=== PATIENT | female | born 1985 | race Caucasian/White ===

== ENCOUNTER 2016-09-08 13:55 | Emergency (ER) | payer OTHER ==
[2016-09-08] MEDS ORDERED: Ketorolac INJ* 60 MG/2 ML VIAL IM ONE (15:28)
[2016-09-08] MEDS ORDERED: Lidocaine 2% VISCOUS* 15 ML UDC PO ONE (15:29)
[2016-09-08] MEDS ORDERED: Lidocaine 2% VISCOUS* 15 ML UDC ONE (15:30)
[2016-09-08 15:32] VITALS: BP 124/66
--- NOTE | 2016-09-08 17:09 | UC ---
Dental HPI - HPI Summary HPI Summary: pt reports have top 4 front teeth extracted yesterday. c/o pain tenderness at extraction site. - History of Current Complaint Chief Complaint: UCDentalProblem Stated Complaint: DENTAL PAIN- FULL TOP EXTRAC 2/3 Time Seen by Provider: 09/08/16 16:37 Hx Obtained From: Patient Hx Last Menstrual Period: 09/04/16 ?: No Onset/Duration: Sudden Onset, Lasting Hours Severity: Moderate Related History: Previous Dental Care on Same Tooth - Allergies/Home Medications Allergies/Adverse Reactions: Allergies Allergy/AdvReac Type Severity Reaction Status Date / Time No Known Allergies Allergy Verified 09/08/16 15:25 Home Medications: Home Medications Venlafaxine ER (NF) [Effexor ER (NF)] 150 mg PO DAILY 09/08/16 [History Confirmed 09/08/16] PMH/Surg Hx/FS Hx/Imm Hx Previously Healthy: Yes Endocrine History Of: Denies: Diabetes Cardiovascular History Of: Denies: Hypertension, Congestive Heart Failure Respiratory History Of: Reports: Asthma - CHILDHOOD GI/ History Of: Denies: Renal Disease - Surgical History Surgical History: Yes Surgery Procedure, Year, and Place: tonsillectomy & addenoids. . tubal 05/2015 - Family History Known Family History: Positive: Unknown, Cardiac Disease - Social History Lives: With Family Alcohol Use: None Substance Use Type: None Smoking Status (MU): Light Every Day Tobacco Smoker Type: Cigarettes Amount Used/How Often: 1/2 ppd Length of Time of Smoking/Using Tobacco: 17 yrs Have You Smoked in the Last Year: Yes When Did the Patient Quit Smoking/Using Tobacco: "YESTERDAY" Household Exposure Type: Cigarettes - Immunization History Most Recent Influenza Vaccination: [id number] Review of Systems Constitutional: Negative Skin: Negative Eyes: Negative ENT: Other - dental extractions Respiratory: Negative Cardiovascular: Negative Gastrointestinal: Negative Genitourinary: Negative Motor: Negative Neurovascular: Negative Musculoskeletal: Negative Neurological: Negative Psychological: Negative All Other Systems Reviewed And Are Negative: Yes Physical Exam Triage Information Reviewed: Yes Appearance: Pain Distress Vital Signs: Initial Vital Signs Temp 98.6 F 09/08/16 15:22 Pulse 77 09/08/16 15:22 Resp 18 09/08/16 15:22 BP 124/66 09/08/16 15:22 Pulse Ox 99 09/08/16 15:22 Vital Signs Reviewed: Yes Eye Exam: Normal ENT Exam: Normal Dental Exam: Other Dental: Positive: Other: - dental extraction sites swollen and tender with blood clots intact Neck exam: Normal Neck: Positive: Supple Respiratory Exam: Normal Cardiovascular Exam: Normal Musculoskeletal Exam: Normal Neurological Exam: Normal Psychological Exam: Normal Skin Exam: Normal Dental Complaint Course/Dx - Differential Dx/Diagnosis Differential Diagnosis/Dx: Post Extraction Pain, Other Provider Diagnoses: Post extraction pain Discharge - Discharge Plan Condition: Stable Disposition: HOME Prescriptions: Lidocaine 2% VISCOUS* 5 ml PO Q2HR PRN #120 ml PRN Reason: Pain Penicillin VK TAB 500 MG(NF) [Penicillin VK 500 mg Tab(NF)] 500 mg PO Q8H #21 tab traMADol TAB* [Ultram*] 50 mg PO Q6HR PRN #20 tab MDD 4 PRN Reason: Pain Patient Education Materials: Acute Dental Trauma (ED) Referrals: Rachana Buckley MD [Primary Care Provider] - Additional Instructions: Please discontinue the Mobic and the Cephalexin
== END 2016-09-08 17:03 | disposition home or self-care (01) ==
LOC: UCCORT 13:55
DX: K08.89 Other specified disorders of teeth and supporting structures (principal); F17.210 Nicotine dependence, cigarettes, uncomplicated
CPT/HCPCS: 96372; 99212; G0463; J1885

== ENCOUNTER 2016-11-08 21:23 | Emergency (ER) | payer OTHER ==
[2016-11-08 21:55] VITALS: BP 117/73
[2016-11-08] MEDS ORDERED: HYDROcodone/ACETAMIN 5-325 MG* 1 TAB PO ONE (22:01)
--- NOTE | 2016-11-08 22:27 | RAD ---
Indication: RIGHT fifth metatarsal and fifth toe pain and swelling following kicking injury. Comparison: February 05, 2014 Technique: AP, lateral, and oblique views RIGHT foot. Report: Normal articular alignment. Negative for fracture. Mild normal variant dorsal osseous bossing at the level of the tarsometatarsal joints on the lateral view is unchanged compared with the 2013 exam without concern. Mild forefoot soft tissue swelling. IMPRESSION: Negative for fracture or dislocation.
--- NOTE | 2016-11-08 23:01 | UC ---
Lower Extremity/Ankle HPI - HPI Summary HPI Summary: HIt her right foot on a desk tonight pain pain in 5th toe and metatarsal - History of Current Complaint Chief Complaint: UCLowerExtremity Stated Complaint: FOOT INJURY Time Seen by Provider: 11/08/16 21:49 Hx Obtained From: Patient Hx Last Menstrual Period: 1 WEEK AGO ?: No Onset/Duration: Sudden Onset Severity Initially: Moderate Severity Currently: Moderate Pain Intensity: 4 Pain Scale Used: 0-10 Numeric Aggravating Factor(s): Standing, Ambulation Alleviating Factor(s): Rest, Elevation Able to Bear Weight: Yes - Allergies/Home Medications Allergies/Adverse Reactions: Allergies Allergy/AdvReac Type Severity Reaction Status Date / Time No Known Allergies Allergy Verified 11/08/16 21:57 PMH/Surg Hx/FS Hx/Imm Hx Previously Healthy: No Endocrine History Of: Denies: Diabetes Cardiovascular History Of: Denies: Hypertension, Congestive Heart Failure Respiratory History Of: Reports: Asthma - CHILDHOOD GI/ History Of: Denies: Renal Disease - Surgical History Surgical History: Yes Surgery Procedure, Year, and Place: tonsillectomy & addenoids. . tubal 05/2015 - Family History Known Family History: Positive: Unknown, Cardiac Disease - Social History Occupation: Unemployed Lives: With Family Alcohol Use: Rare Substance Use Type: None Smoking Status (MU): Current Every Day Smoker Type: Cigarettes Amount Used/How Often: 1/2 ppd Length of Time of Smoking/Using Tobacco: 17 yrs Have You Smoked in the Last Year: Yes When Did the Patient Quit Smoking/Using Tobacco: "YESTERDAY" Household Exposure Type: Cigarettes - Immunization History Most Recent Influenza Vaccination: [id number] Review of Systems Constitutional: Negative Skin: Negative Eyes: Negative ENT: Negative Respiratory: Negative Cardiovascular: Negative Gastrointestinal: Negative Genitourinary: Negative Motor: Negative Neurovascular: Negative Musculoskeletal: Arthralgia - right foot Neurological: Negative Psychological: Negative All Other Systems Reviewed And Are Negative: Yes Physical Exam Triage Information Reviewed: Yes Appearance: Well-Appearing, Well-Nourished, Pain Distress Vital Signs: Initial Vital Signs Temp 97.8 F 11/08/16 21:42 Pulse 81 11/08/16 21:42 Resp 16 11/08/16 21:42 BP 117/73 11/08/16 21:42 Pulse Ox 97 11/08/16 21:42 Vital Signs Reviewed: Yes Eye Exam: Normal Eyes: Positive: Conjunctiva Clear ENT Exam: Normal ENT: Positive: Normal ENT inspection, Hearing grossly normal, TMs normal. Negative: Nasal congestion, Nasal drainage, Trismus, Muffled/hoarse voice Dental Exam: Normal Neck exam: Normal Neck: Positive: Supple, Nontender, No Lymphadenopathy Respiratory Exam: Normal Respiratory: Positive: Chest non-tender, No respiratory distress, No accessory muscle use Cardiovascular Exam: Normal Cardiovascular: Positive: RRR, Pulses Normal, Brisk Capillary Refill Musculoskeletal Exam: Normal Musculoskeletal: Positive: Strength Intact, ROM Intact, Edema @ - lateral right foot Neurological Exam: Normal Neurological: Positive: Alert, Muscle Tone Normal Psychological Exam: Normal Skin Exam: Normal Diagnostics - Radiology No standard instances Xray Interpretation: No Acute Changes Radiology Interpretation Completed By: Radiologist Lower Extremity Course/Dx - Course Course Of Treatment: jignesh wrap, post op shoe, rice, ibuprofen follow with pcp re -check prn - Differential Dx/Diagnosis Differential Diagnosis/HQI/PQRI: Contusion, Fracture (Closed), Sprain, Strain Provider Diagnoses: right foot contusion Discharge - Discharge Plan Condition: Stable Disposition: HOME Patient Education Materials: Ibuprofen (By mouth), Foot Contusion (ED), RICE Therapy (ED) Referrals: Rachana Buckley MD [Primary Care Provider] - If Needed
== END 2016-11-08 22:43 | disposition home or self-care (01) ==
LOC: UCEAST 21:23
DX: S90.31XA Contusion of right foot, initial encounter (principal); W22.8XXA Striking against or struck by other objects, initial encounter; Y92.9 Unspecified place or not applicable; F17.210 Nicotine dependence, cigarettes, uncomplicated
CPT/HCPCS: 99203; G0463

== ENCOUNTER 2017-04-04 09:14 | Emergency (ER) | payer OTHER ==
[2017-04-04 09:39] VITALS: BP 115/75
[2017-04-04] MEDS ORDERED: Ketorolac INJ* 60 MG/2 ML VIAL IM ONE (10:10)
--- NOTE | 2017-04-04 10:45 | UC ---
Abdominal Pain Female HPI - HPI Summary HPI Summary: LOWER ABDOMINAL PAIN X 1 DAY + DIARRHEA, NAUSEA, NO VOMITING, URINARY FREQUENCY NO FEVER, + CHILLS AND BODY ACHES - History of Current Complaint Chief Complaint: UCGI Stated Complaint: ACHY,DIARRHEA Time Seen by Provider: 04/04/17 09:42 Hx Obtained From: Patient Hx Last Menstrual Period: 03/21/17 ?: No Onset/Duration: Gradual Onset, Lasting Days - 1, Still Present Timing: Constant Severity Initially: Moderate Severity Currently: Severe Location: Suprapubic Radiates: No Character: Aching, Colicy, Cramping Aggravating Factor(s): Nothing Alleviating Factor(s): Nothing Associated Signs and Symptoms: Positive: Urinary Symptoms, Nausea, Diarrhea. Negative: Diaphoresis, Fever, Cough, Chest Pain, Dizzy, Back Pain, Constipation , Blood in Stool, Decreased Appetite, Vaginal Bleeding, Vaginal Discharge, Vomiting Allergies/Adverse Reactions: Allergies Allergy/AdvReac Type Severity Reaction Status Date / Time No Known Allergies Allergy Verified 04/04/17 09:23 Home Medications: Home Medications Acetaminophen TAB* [Tylenol TAB*] 650 mg PO Q4H PRN 04/04/17 [History Confirmed 04/04/17] hydrOXYzine HCL TAB* [Atarax 25 MG TAB*] 25 mg PO TID PRN 04/04/17 [History Confirmed 04/04/17] PMH/Surg Hx/FS Hx/Imm Hx Previously Healthy: Yes - Surgical History Surgical History: Yes Surgery Procedure, Year, and Place: tonsillectomy & addenoids. . tubal 05/2015 - Family History Known Family History: Positive: Unknown, Cardiac Disease - Social History Alcohol Use: Rare Substance Use Type: None Smoking Status (MU): Current Every Day Smoker Type: Cigarettes Amount Used/How Often: 1/2 ppd Length of Time of Smoking/Using Tobacco: 17 yrs Have You Smoked in the Last Year: Yes When Did the Patient Quit Smoking/Using Tobacco: "YESTERDAY" Household Exposure Type: Cigarettes - Immunization History Most Recent Influenza Vaccination: [id number] Review of Systems Constitutional: Negative Skin: Negative Eyes: Negative ENT: Negative Gastrointestinal: Abdominal Pain, Diarrhea All Other Systems Reviewed And Are Negative: Yes Physical Exam Triage Information Reviewed: Yes Appearance: Well-Appearing, No Pain Distress, Well-Nourished Vital Signs: Initial Vital Signs Temp 98.9 F 04/04/17 09:25 Pulse 73 04/04/17 09:25 Resp 18 04/04/17 09:25 BP 115/75 04/04/17 09:25 Pulse Ox 98 04/04/17 09:25 Vital Signs Reviewed: Yes Eyes: Positive: Conjunctiva Clear ENT: Positive: Normal ENT inspection, Hearing grossly normal, Pharynx normal Neck: Positive: Supple, Nontender, No Lymphadenopathy Respiratory: Positive: Chest non-tender, Lungs clear, Normal breath sounds Cardiovascular: Positive: RRR, No Murmur, Pulses Normal Abdomen Description: Positive: Soft. Negative: CVA Tenderness (R), CVA Tenderness (L), Distended, Guarding Bowel Sounds: Positive: Present Musculoskeletal Exam: Normal Skin Exam: Normal Abd Pain Female Course/Dx - Differential Dx/Diagnosis Provider Diagnoses: RENAL COLIC. UTI Discharge - Discharge Plan Condition: Stable Disposition: HOME Prescriptions: Ciprofloxacin TAB* [Cipro 500 MG TAB*] 500 mg PO BID #20 tab Ketorolac TAB * [Toradol TAB *] 10 mg PO Q6H #20 tab Patient Education Materials: Urinary Tract Infection in Women (ED), Renal Colic (ED) Referrals: DEXTER Berry [Primary Care Provider] - 5 Days
== END 2017-04-04 10:45 | disposition home or self-care (01) ==
LOC: UCCORT 09:14
DX: N23 Unspecified renal colic (principal); N39.0 Urinary tract infection, site not specified; R19.7 Diarrhea, unspecified; R11.0 Nausea; F17.210 Nicotine dependence, cigarettes, uncomplicated
CPT/HCPCS: 81003; 87086; 96372; 99212; G0463; J1885

== ENCOUNTER 2017-09-17 15:09 | Emergency (ER) | payer OTHER | END 2017-09-17 18:40 | disposition left against medical advice (07) | LOC: UCCORT 15:09 | DX: H92.09 Otalgia, unspecified ear (principal); R68.89 Other general symptoms and signs; Z53.21 Procedure and treatment not carried out due to patient leaving prior to being seen by health care provider ==

== ENCOUNTER 2017-11-07 19:53 | Emergency (ER) | payer OTHER ==
[2017-11-07 20:20] VITALS: BP 118/64
--- NOTE | 2017-11-07 20:24 | UC ---
Abdominal Pain Female HPI - HPI Summary HPI Summary: 32 year old female with abdominal pain . Pt c/o generalized abd pain and bloating starting couple days ago. States she woke up w/ bloating/pain-pain is intermittent and not worse after meals. Also c/o nausea but no vomiting/ diarrhea. Able to keep food/fluids down. Denies dysuria/fever. C/o some lower back pain. Took home preg test which came back negative. Has appt w/ PCP Dr. Olivas on 11/28/17. HAS history of kidney stones in the past. Pain 9/10 at times. pain worsening. no vomiting. mild nausea. [ End ] - History of Current Complaint Chief Complaint: UCAbdominalPain Stated Complaint: ABDOMINAL PAIN/BLOATING Time Seen by Provider: 11/07/17 20:17 Hx Obtained From: Patient Hx Last Menstrual Period: 10/28/17 ?: No Onset/Duration: Gradual Onset Timing: Constant Severity Initially: Moderate Severity Currently: Severe Pain Intensity: 8 Aggravating Factor(s): Nothing Alleviating Factor(s): Nothing Allergies/Adverse Reactions: Allergies Allergy/AdvReac Type Severity Reaction Status Date / Time No Known Allergies Allergy Verified 11/07/17 20:13 Home Medications: Home Medications DULoxetine DR CAP* [Cymbalta CAP*] 90 mg PO DAILY 11/07/17 [History Confirmed ] Ketorolac TAB * [Toradol TAB *] 10 mg PO Q6H PRN 11/07/17 [History Confirmed 12/20] risperiDONE TAB* [RisperDAL*] 1 mg PO BEDTIME 11/07/17 [History Confirmed ] PMH/Surg Hx/FS Hx/Imm Hx Previously Healthy: Yes GI/ History: Kidney Stones Psychological History: Anxiety - Surgical History Surgical History: Yes Surgery Procedure, Year, and Place: tonsillectomy & addenoids. . tubal 05/2015 - Family History Known Family History: Positive: Unknown, Cardiac Disease - Social History Alcohol Use: Occasionally Substance Use Type: Marijuana Substance Use Comment - Amount & Last Used: couple days ago Smoking Status (MU): Current Some Day Smoker Type: Cigarettes Amount Used/How Often: 5 cigs/day Length of Time of Smoking/Using Tobacco: 17 yrs Have You Smoked in the Last Year: Yes When Did the Patient Quit Smoking/Using Tobacco: "YESTERDAY" Household Exposure Type: Cigarettes Cessation Counseling: Patient Advised to Stop - Immunization History Most Recent Influenza Vaccination: [id number] Review of Systems Gastrointestinal: Abdominal Pain, Nausea Is Patient Immunocompromised?: No All Other Systems Reviewed And Are Negative: Yes Physical Exam Triage Information Reviewed: Yes Appearance: Well-Appearing, Well-Nourished, Ill-Appearing, Pain Distress - moderate Vital Signs: Initial Vital Signs Temp 98.1 F 11/07/17 20:14 Pulse 72 11/07/17 20:14 Resp 18 11/07/17 20:14 BP 118/64 11/07/17 20:14 Pulse Ox 97 11/07/17 20:14 Vital Signs Reviewed: Yes Eye Exam: Normal ENT Exam: Normal Dental Exam: Normal Neck exam: Normal Neck: Positive: 1 Respiratory Exam: Normal Cardiovascular Exam: Normal Abdominal Exam: Normal Abdomen Description: Positive: Guarding, Peritoneal Signs, Other: - RLQ pain (+ ) rebound tenderness. mid epigastric tenderness as well.. Negative: CVA Tenderness (R), CVA Tenderness (L), Distended Bowel Sounds: Positive: Present Musculoskeletal Exam: Normal Neurological Exam: Normal Psychological Exam: Normal Skin Exam: Normal Abd Pain Female Course/Dx - Course Course Of Treatment: To go to ED for further work up at this time. Spoke with Dr Gray who is willing to accept patient. U/A shows leuks and neg . crying in room from pain and anxiety - Differential Dx/Diagnosis Differential Diagnosis: Appendicitis, Diverticulitis, Irritable Bowel Syndrome, Peptic Ulcer Disease, Urinary Tract Infection Provider Diagnoses: abdominal pain Discharge - Sign-Out/Discharge Documenting (check all that apply): Discharge - 1015 - Discharge Plan Condition: Fair Disposition: [facility] Patient Education Materials: Abdominal Pain (ED) Referrals: Clary Lanza MD [Primary Care Provider] - 4 Days Additional Instructions: Please go directly to the emergency room . Good luck ! - Billing Disposition and Condition Condition: FAIR Disposition: EMTALA
== END 2017-11-07 20:41 | disposition home or self-care (01) ==
LOC: UCCORT 19:53
DX: R10.13 Epigastric pain (principal); Z87.442 Personal history of urinary calculi; F41.9 Anxiety disorder, unspecified; F17.210 Nicotine dependence, cigarettes, uncomplicated
CPT/HCPCS: 81003; 84702; 87086; 99212; G0463

== ENCOUNTER 2018-10-30 15:08 | Emergency (ER) | payer MEDICAID, OTHER ==
[2018-10-30 16:37] VITALS: BP 114/72
--- NOTE | 2018-10-30 16:42 | UC ---
Throat Pain/Nasal Mg HPI - HPI Summary HPI Summary: 2 wks of nasal congestion and came in today b/c her ears are in pain. also beginning to get ringing in ears. which she feels is worsening. - History of Current Complaint Chief Complaint: UCEar Stated Complaint: BILATERAL EAR CONCERN Time Seen by Provider: 10/30/18 16:29 Hx Obtained From: Patient Hx Last Menstrual Period: 09/2018 Pain Intensity: 7 Pain Scale Used: 0-10 Numeric Cough: None Related History: Smoking - Allergies/Home Medications Allergies/Adverse Reactions: Allergies Allergy/AdvReac Type Severity Reaction Status Date / Time No Known Allergies Allergy Verified 10/30/18 16:33 Home Medications: Home Medications Acetaminophen [Tylenol Extra Strength] 500 mg PO Q6HR PRN 10/30/18 [History Confirmed 10/30/18] guaiFENesin [Mucinex] 600 mg PO Q12HR PRN 10/30/18 [History Confirmed 10/30/18] PMH/Surg Hx/FS Hx/Imm Hx Previously Healthy: Yes - Surgical History Surgical History: Yes Surgery Procedure, Year, and Place: tonsillectomy & addenoids. . tubal 05/2015 - Family History Known Family History: Positive: Unknown, Cardiac Disease - Social History Alcohol Use: Occasionally Substance Use Type: Marijuana Substance Use Comment - Amount & Last Used: couple days ago Smoking Status (MU): Current Some Day Smoker Type: Cigarettes Amount Used/How Often: 7 cigs/day Length of Time of Smoking/Using Tobacco: 17 yrs Have You Smoked in the Last Year: Yes When Did the Patient Quit Smoking/Using Tobacco: "YESTERDAY" Household Exposure Type: Cigarettes - Immunization History Most Recent Influenza Vaccination: [id number] Review of Systems All Other Systems Reviewed And Are Negative: Yes Constitutional: Negative: Fever, Chills Eyes: Positive: Negative ENT: Positive: Ear Ache, Sinus Congestion. Negative: Sore Throat, Nasal Discharge, Sinus Pain/Tenderness Respiratory: Positive: Negative Cardiovascular: Positive: Negative Physical Exam Triage Information Reviewed: Yes Appearance: Well-Appearing Vital Signs: Initial Vital Signs Temp 98.5 F 10/30/18 16:34 Pulse 88 10/30/18 16:34 Resp 16 10/30/18 16:34 BP 114/72 10/30/18 16:34 Pulse Ox 100 03/28/19 16:34 Vital Signs Reviewed: Yes Eyes: Positive: Conjunctiva Clear ENT: Positive: Pharynx normal, Uvula midline. Negative: TMs normal - effusions bilat, Muffled voice, Hoarse voice, Dental tenderness, Sinus tenderness Neck: Positive: Supple, Nontender, No Lymphadenopathy. Negative: Nuchal Rigidity Respiratory Exam: Normal Cardiovascular Exam: Normal Throat Pain/Nasal Course/Dx - Course Course Of Treatment: Acute sinusitis x2 wks w/ringing in her ears, ear pain. vitals are good and on exam middle ear effusions are noted which we discussed and are expected w/ sinusitis sometimes. we reviewed tx w/ otc meds and for now can use flonase temporarily if need be. - Differential Dx/Diagnosis Provider Diagnosis: Sinusitis, Acute middle ear effusion Discharge - Sign-Out/Discharge Documenting (check all that apply): Patient Departure All imaging exams completed and their final reports reviewed: No Studies - Discharge Plan Condition: Good Disposition: HOME Prescriptions: Fluticasone NASAL SPRAY 50MCG* [Flonase NASAL SPRAY 50MCG*] 2 spray BOTH NARES DAILY PRN #1 btl PRN Reason: Congestion Patient Education Materials: Sinusitis (ED) Referrals: Keysha Hu MD [Primary Care Provider] - Additional Instructions: IF not improving please follow up with your pcp - Billing Disposition and Condition Condition: GOOD Disposition: Home
== END 2018-10-30 16:46 | disposition home or self-care (01) ==
LOC: UCCORT 15:08
DX: J32.9 Chronic sinusitis, unspecified (principal); H65.193 Other acute nonsuppurative otitis media, bilateral; F17.210 Nicotine dependence, cigarettes, uncomplicated
CPT/HCPCS: 99212; G0463

== ENCOUNTER 2019-07-08 10:50 | Emergency (ER) | payer OTHER ==
[2019-07-08 12:03] VITALS: BP 130/84
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
== END 2019-07-08 12:52 | disposition home or self-care (01) ==
LOC: UCCORT 10:50
DX: S61.012D Laceration without foreign body of left thumb without damage to nail, subsequent encounter (principal); F17.210 Nicotine dependence, cigarettes, uncomplicated; V00-Y99 External causes of morbidity
CPT/HCPCS: 99212; G0463

== ENCOUNTER 2019-07-13 10:56 | Emergency (ER) | payer OTHER ==
[2019-07-13 12:07] VITALS: BP 129/92
[2019-07-13] MEDS ORDERED: Ibuprofen TAB* 600 MG PO ONE (12:26)
--- NOTE | 2019-07-13 12:39 | UC ---
HPI Wound/Suture Re-check - HPI Summary HPI Summary: Patient is a 33yo female presenting with for suture removal in L thumb. Patient had [address] in ED on 06/29. I saw patient here on 07/08 and removed 4 sutures. The rest remained in, as the wound had not completely healed. Patient returns today to have the rest removed. Also notes that her L thumb continues to be weak with decreased ROM. Also noted continuous L wrist pain. Notes wrist pain worse with extension. Denies pain at rest. Also notes tingling in L thumb and L wrist that radiated to her shoulder at times. Denies numbness. Patient states she had negative xrays in ED but is requesting repeat imaging today since her pain has not improved. - History Of Current Complaint Chief Complaint: UCGeneralIllness Stated Complaint: STUTURE REMOVAL Hx Obtained From: Patient Hx Last Menstrual Period: 07/10/19 Severity: Severe Pain Intensity: 8 Pain Scale Used: 0-10 Numeric - Allergies/Home Medications Allergies/Adverse Reactions: Allergies Allergy/AdvReac Type Severity Reaction Status Date / Time No Known Allergies Allergy Verified 07/13/19 12:00 PMH/Surg Hx/FS Hx/Imm Hx - Surgical History Surgical History: Yes Surgery Procedure, Year, and Place: tonsillectomy & adenoids. . tubal 05/2015 - Family History Known Family History: Positive: Unknown, Cardiac Disease, Non-Contributory - Social History Alcohol Use: Rare Substance Use Type: Marijuana Substance Use Comment - Amount & Last Used: 07/13/19 Smoking Status (MU): Heavy Every Day Tobacco Smoker Type: Cigarettes Amount Used/How Often: 1/2 PPD Length of Time of Smoking/Using Tobacco: 17 yrs Have You Smoked in the Last Year: Yes When Did the Patient Quit Smoking/Using Tobacco: "YESTERDAY" Household Exposure Type: Cigarettes - Immunization History Most Recent Influenza Vaccination: 6340-8246 Most Recent Tetanus Shot: 06/29/2019 Review of Systems All Other Systems Reviewed And Are Negative: Yes Constitutional: Positive: Negative Skin: Positive: Other - 4 sutures in L thumb Respiratory: Positive: Negative Cardiovascular: Positive: Negative Musculoskeletal: Positive: Arthralgia - L wrist, L thumb Neurological: Positive: Weakness - L handgrip, Paresthesia - L thumb, L wrist. 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 no snuffbox tenderness Neurological Exam: Other - sensation grossly intact Neurological: Positive: Alert Psychological: Positive: Age Appropriate Behavior Skin: Positive: Other - healing laceration of dorsal L thumb with 4 sutures intact. no drainage, bleeding, or fluctuance. Diagnostics - Radiology L thumb Radiology Interpretation Completed By: Radiologist Summary of Radiographic Findings: IMPRESSION: No fracture noted. L wrist Radiology Interpretation Completed By: Radiologist Summary of Radiographic Findings: IMPRESSION: #. No radiographic evidence for LEFT wrist fracture. #. If there is high index of suspicion for an occult scaphoid fracture repeat exam in 7 - 10 days would be suggested. Course/Dx - Diagnosis Provider Diagnosis: Encounter for removal of sutures, Acute pain of left wrist, Pain of left thumb Discharge ED - Sign-Out/Discharge Documenting (check all that apply): Patient Departure All imaging exams completed and their final reports reviewed: Yes - Discharge Plan Condition: Stable Disposition: HOME Patient Education Materials: Wrist Injury (ED), Arthralgia (ED) Forms: *Work Release Referrals: Kb Dillon MD [Medical Doctor] - As Soon As Possible Additional Instructions: You had your sutures removed today. Continue to wash the area gently with warm water and soap daily while it continues to heal. Your xrays were read as normal today. Continue to rest, ice, and wear your brace to help relieve pain. You may continue to take your naproxen as directed for pain relief. Follow up with the orthopedic referral listed below for further evaluation of your injuries. - Billing Disposition and Condition Condition: STABLE Disposition: Home - Attestation Statements Provider Attestation: This patient was not seen by me. I was available for consult. Chart reviewed. ALLYN
== END 2019-07-13 13:43 | disposition home or self-care (01) ==
LOC: UCCORT 10:56
DX: Z48.02 Encounter for removal of sutures (principal); S61.012D Laceration without foreign body of left thumb without damage to nail, subsequent encounter; M25.532 Pain in left wrist; M79.645 Pain in left finger(s); R53.1 Weakness; R20.2 Paresthesia of skin; F17.210 Nicotine dependence, cigarettes, uncomplicated; X58.XXXD Exposure to other specified factors, subsequent encounter
CPT/HCPCS: 99212; A9270-GY; G0463